=== PATIENT | male | born 1965 | race Caucasian/White ===

== ENCOUNTER 2025-02-22 16:44 | Emergency (ER) | payer OTHER ==
[~2025-02-22 16:44] MED LIST: Iopamidol 370 76% 100 ML VIAL ONE
[2025-02-22 17:31] LABS: #Basophils 0.1 thou/uL (0.0-0.2); #Eosinophils 0.1 thou/uL (0.0-0.7); #Lymphocytes 2.2 thou/uL (1.20-3.40); #Monocytes 0.5 thou/uL (0.11-0.59); #Neutrophils 5.1 thou/uL (1.40-6.50); %Basophils 1.0 % (0.0-1.0); %Eosinophils 1.7 % (0.0-10.0); %Lymphocytes 27.5 % (21.0-51.0); %Monocytes 6.3 % (0.0-10.0); %Neutrophils 63.6 % (42.0-75.0); Hematocrit 44.7 % (42.0-52.0); Hemoglobin 14.7 g/dL (14.0-18.0); Mean Corpuscular Hemoglobin 29.8 pg (27.0-31.0); Mean Corpuscular Volume 90.4 fl (78.0-98.0); Platelet Count 202 10x3/uL (130-400); Red Blood Cell (RBC) Count 4.94 mill/uL (4.70-6.10); White Blood Cell (WBC) Count 8.0 10x3/uL (4.8-10.8)
[2025-02-22 17:44] LABS: ALT (SGPT) 35 U/L (Less than 45); AST (SGOT) 24 U/L (11-34); Albumin 4.1 g/dL (3.1-4.5); Alkaline Phosphatase 76 U/L (40-110); Anion Gap 16 mmol/L (10-20); BUN (Urea Nitrogen) 13 mg/dL (8.4-25.7); Bilirubin, Total 0.7 mg/dL (0.3-1.2); Calc. Creatinine Clearance 0 mL/min (70-130); Calcium 9.1 mg/dL (7.8-10.44); Carbon Dioxide 25 mmol/L (22-29); Chloride 102 mmol/L (98-107); Globulin 3.1 g/dL (2.4-3.5); Glucose 157 mg/dL (70-105); Potassium 4.0 mmol/L (3.5-5.1); Sodium 139 mmol/L (136-145)
[2025-02-22 17:45] LABS: Troponin I 0.018 ng/mL (< 0.028)
== END 2025-02-22 19:10 | disposition home or self-care (01) ==
LOC: BURERS 16:44
DX: M25.512 Pain in left shoulder (principal); M54.10 Radiculopathy, site unspecified; R20.0 Anesthesia of skin; F17.220 Nicotine dependence, chewing tobacco, uncomplicated; R29.700 NIHSS score 0
CPT/HCPCS: 71045; 71275; 74174; 80053; 80307; 84484; 85025; 93005; 94760; Q9967